=== PATIENT | male | born 1955 | race Caucasian/White ===

== ENCOUNTER → 2017-04-10 | Outpatient (CLI) | payer BC, OTHER | LOC: RAD 15:38 | DX: M25.571 Pain in right ankle and joints of right foot (principal) ==

== ENCOUNTER 2017-09-15 09:33 | Emergency (ER) | payer BC, OTHER ==
[~2017-09-15] VITALS: Ht 167.6 cm; Wt 68.0 kg
[2017-09-15] MEDS ORDERED: LIPITOR 20 MG T20 M1 PO (10:18)
[2017-09-15] MEDS ORDERED: NUVIGIL200 MG PO (10:19)
[2017-09-15] MEDS ORDERED: ECOTRIN325 MG PO (10:19)
[2017-09-15] MEDS ORDERED: NORCO 5-325 TA1 EACH PO (11:05)
[2017-09-15 11:22] VITALS: BP 162/74
== END 2017-09-15 11:23 | disposition home or self-care (01) ==
LOC: ER 09:33
DX: S62.609A Fracture of unspecified phalanx of unspecified finger, initial encounter for closed fracture (principal); W23.0XXA Caught, crushed, jammed, or pinched between moving objects, initial encounter; Y93.89 Activity, other specified; Y92.89 Other specified places as the place of occurrence of the external cause; Y99.8 Other external cause status; C91.10 Chronic lymphocytic leukemia of B-cell type not having achieved remission

== ENCOUNTER 2020-10-11 12:44 | Emergency (ER) | payer OTHER, BC ==
[~2020-10-11] VITALS: Ht 167.6 cm; Wt 65.8 kg
[~2020-10-11 12:44] MED LIST: ECOTRIN325 MG PO; LIPITOR 20 MG T20 M1 PO; NORCO 5-325 TA1 EACH PO; NUVIGIL200 MG PO
[2020-10-11 13:19] VITALS: BP 182/95
== END 2020-10-11 13:26 | disposition home or self-care (01) ==
LOC: ER 12:44
DX: R53.83 Other fatigue (principal); Z20.828 Contact with and (suspected) exposure to other viral communicable diseases; Z79.899 Other long term (current) drug therapy